=== PATIENT | male | born 1945 | race Caucasian/White ===

== ENCOUNTER → 2021-11-01 | Outpatient (CLI) | payer MEDICARE | LOC: PLD 14:20 | DX: D48.5 Neoplasm of uncertain behavior of skin (principal) ==

== ENCOUNTER → 2022-01-10 | Outpatient (CLI) | payer MEDICARE ==
[2022-01-10 19:10] LABS: Calcium, Blood 9.8 mg/dL (8.5-10.1); Potassium, Blood 5.2 mmol/L (3.5-5.5)
[2022-01-11 08:09] LABS: HIV AB/P24 AG SCREEN Non Reactive (Non Reactive)
== END | disposition home or self-care (01) ==
LOC: LAB SHORT 16:45 → LAB 16:45
PROVIDERS: Nurse Practitioner Family
DX: Z11.59 Encounter for screening for other viral diseases (principal); I10 Essential (primary) hypertension
CPT/HCPCS: 80048; 86803; 87389

== ENCOUNTER → 2023-01-10 | Outpatient (CLI) | payer MEDICARE ==
[2023-01-10 19:01] LABS: Bun/Creatinine Ratio 13.6 (12.0-20.0); Calcium, Blood 9.6 mg/dL (8.5-10.1); Creatinine, Blood 0.81 mg/dL (0.60-1.20); Potassium, Blood 4.1 mmol/L (3.5-5.5)
== END ==
LOC: LAB 15:58 → LAB SHORT 15:58
PROVIDERS: Nurse Practitioner Family
DX: I10 Essential (primary) hypertension (principal); R73.01 Impaired fasting glucose
CPT/HCPCS: 80048; 83036

== ENCOUNTER 2023-05-10 18:27 | Emergency (ER) | payer MEDICARE ==
[~2023-05-10] VITALS: Ht 175.3 cm; Wt 77.1 kg
[2023-05-10 18:53] VITALS: BP 133/77
== END 2023-05-10 21:28 | disposition home or self-care (01) ==
LOC: ER 18:27
DX: S01.81XA Laceration without foreign body of other part of head, initial encounter (principal); S61.411A Laceration without foreign body of right hand, initial encounter; W18.09XA Striking against other object with subsequent fall, initial encounter; Z95.0 Presence of cardiac pacemaker; Z79.01 Long term (current) use of anticoagulants
CPT/HCPCS: 12011; 99283-25

== ENCOUNTER 2024-05-10 17:11 | Emergency (ER) | payer MEDICARE ==
[~2024-05-10] VITALS: Ht 175.3 cm; Wt 70.3 kg
[2024-05-10] MEDS ORDERED: Morphine Sulfate 4 MG/1 ML Injection IV ONE (18:40)
[2024-05-10 19:30] VITALS: BP 148/65
== END 2024-05-10 19:30 | disposition home or self-care (01) ==
LOC: ER 17:11
DX: S01.21XA Laceration without foreign body of nose, initial encounter (principal); S61.213A Laceration without foreign body of left middle finger without damage to nail, initial encounter; S00.93XA Contusion of unspecified part of head, initial encounter; S80.212A Abrasion, left knee, initial encounter; Z95.0 Presence of cardiac pacemaker; Z79.01 Long term (current) use of anticoagulants; W18.30XA Fall on same level, unspecified, initial encounter
CPT/HCPCS: 12001; 12011; 70450; 96374-59; 99283-25; J2270

== ENCOUNTER → 2024-06-24 | Outpatient (CLI) | payer MEDICARE ==
[2024-06-24 16:29] LABS: BASOPHILS ABSOLUTE AUTO 0.01 K/mm3 (0.00-0.23); BASOPHILS PERCENT AUTO 0 % (0-2); EOSINOPHILS ABSOLUTE AUTO 0.02 K/mm3 (0.00-0.68); EOSINOPHILS PERCENT AUTO 0 % (0-6); Hematocrit 43.1 % (37.0-53.0); Hemoglobin 14.8 g/dL (13.5-17.5); IMMATURE GRAN ABSOLUTE AUTO 0.08 K/mm3 (0.00-0.10); IMMATURE GRAN PERCENT AUTO 1 % (0-1); LYMPHOCYTES ABSOLUTE AUTO 1.36 K/mm3 (0.84-5.20); LYMPHOCYTES PERCENT AUTO 11 % (21-46); MONOCYTES ABSOLUTE AUTO 0.94 K/mm3 (0.16-1.47); MONOCYTES PERCENT AUTO 7 % (4-13); Mean Corpuscular HGB 32.3 pg (26.0-34.0); Mean Corpuscular HGB Conc 34.3 g/dL (31.5-36.5); Mean Corpuscular Volume 94 fL (80-100); NEUTROPHILS ABSOLUTE AUTO 10.54 K/mm3 (1.96-9.15); NEUTROPHILS PERCENT AUTO 81 % (41-73); Platelet Count 160 K/mm3 (150-400); RDW Coefficient Variation 13.2 % (11.7-14.2); RDW Standard Deviation 45.6 fL (35.1-46.3); Red Blood Cell Count 4.58 M/mm3 (4.30-5.90); White Blood Cell Count 12.95 K/mm3 (4.00-11.30)
[2024-06-24 16:39] LABS: Bun/Creatinine Ratio 29.1 (12.0-20.0); Calcium, Blood 8.9 mg/dL (8.5-10.1); Creatinine, Blood 0.83 mg/dL (0.60-1.20); Potassium, Blood 4.6 mmol/L (3.5-5.5); Thyroid Stimulating Hormone 0.986 uIU/mL (0.360-4.800)
== END ==
LOC: LAB SHORT 11:57 → LAB 11:57
PROVIDERS: Nurse Practitioner Family
DX: I10 Essential (primary) hypertension (principal); R53.83 Other fatigue; D72.829 Elevated white blood cell count, unspecified; E87.6 Hypokalemia; R53.82 Chronic fatigue, unspecified; Z79.899 Other long term (current) drug therapy
CPT/HCPCS: 80048; 84443; 85025

== ENCOUNTER 2024-11-08 15:57 | Emergency (ER) | payer MEDICARE ==
[~2024-11-08] VITALS: Ht 172.7 cm; Wt 63.0 kg
[2024-11-08 16:03] VITALS: BP 124/61
== END 2024-11-08 17:20 | disposition home or self-care (01) ==
LOC: ER 15:57
DX: S41.111A Laceration without foreign body of right upper arm, initial encounter (principal); M54.89 Other dorsalgia; Z79.01 Long term (current) use of anticoagulants; W01.198A Fall on same level from slipping, tripping and stumbling with subsequent striking against other object, initial encounter
CPT/HCPCS: 72080; 99284-25; A9270

== ENCOUNTER 2024-12-15 10:09 | Day surgery (SDC) | payer MEDICARE ==
[~2024-12-15] VITALS: Ht 172.7 cm; Wt 61.0 kg
[2024-12-15] MEDS ORDERED: EPINEPhrine HCl 1 MG / ML 30ML Vial ONE (10:18)
[2024-12-15] MEDS ORDERED: FentaNYL Citrate 50 MCG/ML 2 ML Injection ONE (10:19)
[2024-12-15] MEDS ORDERED: Sugammadex Sodium 200 MG/2ML SDV (100 MG/ML) ONE (10:19)
[2024-12-15] MEDS ORDERED: Dexamethasone Sod Phos 10 MG/ML 1ML VIAL ONE (10:20)
[2024-12-15] MEDS ORDERED: Ondansetron HCl 2 MG / ML 2ML Vial ONE (10:20)
[2024-12-15] MEDS ORDERED: Rocuronium Bromide 10 MG/ML 5ML Injection IV ONE (10:20)
[2024-12-15] MEDS ORDERED: AMLODIPINE BESY10 MG PO (10:33)
[2024-12-15] MEDS ORDERED: LISI20 PO (10:33)
[2024-12-15] MEDS ORDERED: ATOR40TA PO (10:33)
[2024-12-15] MEDS ORDERED: ELIQUIS5 M3 PO (10:33)
[2024-12-15] MEDS ORDERED: ANORO ELLIPTA1 EAC1 IH (10:34)
[2024-12-15] MEDS ORDERED: ALBU90OI INH (10:34)
[2024-12-15] MEDS ORDERED: ALBU2.5V5 INH (10:38)
[2024-12-15] MEDS ORDERED: Phenylephrine HCl 100 MCG/ML-NS 10MLSYR (1MG/10ML) ONE (11:07)
[2024-12-15] MEDS ORDERED: Oxymetazoline 0.05% Nasal Relief Spray 15mL BTL ONE (11:22)
--- NOTE | 2024-12-15 11:45 | NUR ---
12/15/24 1145 FELI MICHELLE TRIAL OFF OXYGEN. PT RUNNING 100% ON 8L NON-REBREATHER.
[2024-12-15 12:01] VITALS: BP 119/69
--- NOTE | 2024-12-15 12:08 | NUR ---
12/15/24 1200 FELI MICHELLE PT IN AT BEDSIDE. PT PUTTING HEARING AIDS IN AT THIS TIME. DRINKING WO DIFF.
== END 2024-12-15 12:46 | disposition home or self-care (01) ==
LOC: ORSCSDS 10:09
PROVIDERS: Otolaryngology
PROC: 0CBR8ZX Excision of Epiglottis, Via Natural or Artificial Opening Endoscopic, Diagnostic (ICD-10-PCS; principal; 2024-12-15 11:30)
DX: J38.7 Other diseases of larynx (principal); I10 Essential (primary) hypertension; R49.0 Dysphonia; R13.10 Dysphagia, unspecified; R63.4 Abnormal weight loss; J44.9 Chronic obstructive pulmonary disease, unspecified; Z79.01 Long term (current) use of anticoagulants; Z79.899 Other long term (current) drug therapy; F17.290 Nicotine dependence, other tobacco product, uncomplicated; R33.9 Retention of urine, unspecified
CPT/HCPCS: 51702; 51798; 81001; 88305; 88312; 96374; 99283; A9270; J0165; J1100; J1885; J2371; J2405; J2704; J3010; J7120

== ENCOUNTER 2024-12-15 20:45 | Emergency (ER) | payer MEDICARE ==
[~2024-12-15] VITALS: Ht 172.7 cm; Wt 59.4 kg
[~2024-12-15 20:45] MED LIST: ALBU2.5V5 INH; ALBU90OI INH; AMLODIPINE BESY10 MG PO; ANORO ELLIPTA1 EAC1 IH; ATOR40TA PO; ELIQUIS5 M3 PO; LISI20 PO
[2024-12-15 21:44] VITALS: BP 107/72
[2024-12-15 23:33] LABS: Source, Urine Foley catheter
[2024-12-15 23:59] LABS: Bilirubin, Urine Neg (Neg); Glucose Qualitative, Urine Neg (Neg); Ketones, Urine 1+ (Neg); Leukocyte Esterase, Urine Neg (Neg); Protein, Urine 2+ (Neg); Specific Gravity, Urine 1.015 (1.003-1.022); Urobilinogen, Urine NORM (Normal)
[2024-12-16 00:06] LABS: Color, Urine Yellow (P-Yellow)
[2024-12-16 00:08] LABS: Red Blood Cells, Urine 0-2 /hpf (0-2); White Blood Cells, Urine 0-2 /hpf (0-5)
[2024-12-16] MEDS ORDERED: Ketorolac Tromethamine 15mg Vial IM ONE (00:50)
== END 2024-12-16 01:02 | disposition home or self-care (01) ==
LOC: ER 20:45
PROVIDERS: Physician Assistant
DX: R33.9 Retention of urine, unspecified (principal); Z79.899 Other long term (current) drug therapy
CPT/HCPCS: 51702; 51798; 81001; 96374; 99283; J1885

== ENCOUNTER 2024-12-24 04:02 | Observation (INO) | payer MEDICARE ==
[~2024-12-24] VITALS: Ht 172.7 cm; Wt 61.2 kg
[2024-12-24 04:24] LABS: Source, Urine Foley catheter
[2024-12-24 04:42] LABS: Bilirubin, Urine Neg (Neg); Glucose Qualitative, Urine Neg (Neg); Ketones, Urine 3+ (Neg); Leukocyte Esterase, Urine Neg (Neg); Protein, Urine 1+ (Neg); Specific Gravity, Urine 1.015 (1.003-1.022); Urobilinogen, Urine NORM (Normal)
[2024-12-24 05:02] LABS: Color, Urine Yellow (P-Yellow)
[2024-12-24] MEDS ORDERED: Ketorolac Tromethamine 30mg Vial IV ONE (06:20)
[2024-12-24 06:34] LABS: BASOPHILS ABSOLUTE AUTO 0.03 K/mm3 (0.00-0.23); BASOPHILS PERCENT AUTO 0 % (0-2); EOSINOPHILS ABSOLUTE AUTO 0.04 K/mm3 (0.00-0.68); EOSINOPHILS PERCENT AUTO 0 % (0-6); Hematocrit 34.6 % (37.0-53.0); Hemoglobin 12.1 g/dL (13.5-17.5); IMMATURE GRAN ABSOLUTE AUTO 0.05 K/mm3 (0.00-0.10); IMMATURE GRAN PERCENT AUTO 0 % (0-1); LYMPHOCYTES ABSOLUTE AUTO 0.94 K/mm3 (0.84-5.20); LYMPHOCYTES PERCENT AUTO 8 % (21-46); MONOCYTES ABSOLUTE AUTO 0.85 K/mm3 (0.16-1.47); MONOCYTES PERCENT AUTO 8 % (4-13); Mean Corpuscular HGB Conc 35.0 g/dL (31.5-36.5); Mean Corpuscular Volume 90 fL (80-100); NEUTROPHILS ABSOLUTE AUTO 9.25 K/mm3 (1.96-9.15); NEUTROPHILS PERCENT AUTO 83 % (41-73); NRBC ABSOLUTE 0.00 K/mm3 (0.00-0.02); NRBC Auto 0.0 /100 WBC (0.0-0.2); Platelet Count 217 K/mm3 (150-400); RDW Coefficient Variation 12.8 % (11.7-14.2); RDW Standard Deviation 42.2 fL (35.1-46.3)
[2024-12-24] MEDS ORDERED: Lactulose 200 GM/300 ML Enema 300ML BTL PR ONE (07:00)
[2024-12-24 07:04] LABS: Magnesium, Blood 1.9 mg/dL (1.6-2.4)
[2024-12-24 07:05] LABS: Alanine Aminotransfer (ALT/SGP 24.0 U/L (12-78); Albumin, Blood 2.8 g/dL (3.4-5.0); Albumin/Globulin Ratio 1.0 (0.8-1.8); Anion Gap 11.0 mmol/L (3-11); Aspartate Aminotrans (AST/SGOT 18.0 U/L (12-37); Bilirubin, Total 0.8 mg/dL (0.1-1.0); Blood Urea Nitrogen 11.0 mg/dL (8-24); CO2, Blood 22.0 mmol/L (21-32); Calcium, Blood 8.8 mg/dL (8.5-10.1); Chloride, Blood 102.0 mmol/L (98-108); Creatinine, Blood 0.45 mg/dL (0.60-1.20); Globulin, Blood 2.7 g/dL (2.2-4.0); Glucose, Blood 96.0 mg/dL (70-99); Potassium, Blood 3.5 mmol/L (3.5-5.5); Sodium, Blood 131.0 mmol/L (136-145); Total Protein, Blood 5.5 g/dL (6.4-8.2)
[2024-12-24] MEDS ORDERED: Magnesium Citrate 300 ML BTL PO ONE (09:50)
[2024-12-24] MEDS ORDERED: FLU VACC TS2025(65UP)/MF59C/PF 45 MCG/0.5 ML SYRINGE IM ONE (11:25)
[2024-12-24] MEDS ORDERED: MIRALAX17 GM PO (11:59)
[2024-12-24] MEDS ORDERED: Ipratropium/Albuterol SulF 2.5-0.5MG/3 ML Amp INH SCH (14:00)
[2024-12-24 15:26] VITALS: BP 137/76
[2024-12-24] MEDS ORDERED: Polyethylene Glycol 3350 17 gm PO PRN (15:30)
[2024-12-24] MEDS ORDERED: NICO21TP TOP (15:37)
--- NOTE | 2024-12-24 17:05 | NUR ---
SHIFT SUMMARY PATIENT RECEIVED FROM ER AT 1500. PATIENT A&OX4, SON AND PATIENT WAS ABLE TO PROVIDE HISTORY. HAS HAD 3 BM'S SINCE ADMIT. PATIENT ORIENTED TO FLOOR. PATIENT ASKED TO BE A DNR, CODE STATUS UPDATED. PATIENT IS ABLE TO MAKE NEEDS KNOWN, NO DISTRESS NOTED. CALL LIGHT WITHIN REACH.
--- NOTE | 2024-12-24 17:24 | NUR ---
THIS STAFFING ANALYST HAS REVIEWED AND AGREES WITH ALL NOTES AND ASSESSMENTS BY FELISA PETERS.
[2024-12-24 19:42] VITALS: BP 143/78
[2024-12-24] MEDS ORDERED: Miconazole Nitrate 2% 85 GM PWD TOP SCH (21:00)
[2024-12-25 03:50] VITALS: BP 127/73
--- NOTE | 2024-12-25 05:27 | NUR ---
PT RESTED COMFORTABLY ALL NIGHT. NO PRN MEDICATIONS WERE GIVEN. NO ACUTE CHANGES. BED IN LOW POSITION, CALL TAVARES WITHIN REACH, POSESSIONS WITHIN REACH.
[2024-12-25 06:35] LABS: BASOPHILS ABSOLUTE AUTO 0.03 K/mm3 (0.00-0.23); BASOPHILS PERCENT AUTO 0 % (0-2); EOSINOPHILS ABSOLUTE AUTO 0.08 K/mm3 (0.00-0.68); EOSINOPHILS PERCENT AUTO 1 % (0-6); Hematocrit 37.4 % (37.0-53.0); Hemoglobin 12.6 g/dL (13.5-17.5); IMMATURE GRAN ABSOLUTE AUTO 0.05 K/mm3 (0.00-0.10); IMMATURE GRAN PERCENT AUTO 1 % (0-1); LYMPHOCYTES ABSOLUTE AUTO 1.08 K/mm3 (0.84-5.20); LYMPHOCYTES PERCENT AUTO 12 % (21-46); MONOCYTES ABSOLUTE AUTO 0.76 K/mm3 (0.16-1.47); MONOCYTES PERCENT AUTO 8 % (4-13); Mean Corpuscular HGB Conc 33.7 g/dL (31.5-36.5); Mean Corpuscular Volume 94 fL (80-100); NEUTROPHILS ABSOLUTE AUTO 7.40 K/mm3 (1.96-9.15); NEUTROPHILS PERCENT AUTO 79 % (41-73); NRBC ABSOLUTE 0.00 K/mm3 (0.00-0.02); NRBC Auto 0.0 /100 WBC (0.0-0.2); Platelet Count 231 K/mm3 (150-400); RDW Coefficient Variation 13.1 % (11.7-14.2); RDW Standard Deviation 45.0 fL (35.1-46.3)
[2024-12-25 07:05] LABS: Alanine Aminotransfer (ALT/SGP 22.0 U/L (12-78); Albumin, Blood 2.8 g/dL (3.4-5.0); Albumin/Globulin Ratio 1.1 (0.8-1.8); Anion Gap 11.0 mmol/L (3-11); Aspartate Aminotrans (AST/SGOT 17.0 U/L (12-37); Bilirubin, Total 0.6 mg/dL (0.1-1.0); Blood Urea Nitrogen 6.0 mg/dL (8-24); CO2, Blood 21.0 mmol/L (21-32); Calcium, Blood 8.9 mg/dL (8.5-10.1); Chloride, Blood 108.0 mmol/L (98-108); Creatinine, Blood 0.51 mg/dL (0.60-1.20); Globulin, Blood 2.6 g/dL (2.2-4.0); Glucose, Blood 75.0 mg/dL (70-99); Potassium, Blood 3.3 mmol/L (3.5-5.5); Sodium, Blood 137.0 mmol/L (136-145); Total Protein, Blood 5.4 g/dL (6.4-8.2)
[2024-12-25] MEDS ORDERED: Albuterol 2.5 MG/3 ML VIAL INH PRN (07:30)
[2024-12-25 07:41] VITALS: BP 133/73
[2024-12-25] MEDS ORDERED: Ipratropium/Albuterol SulF 2.5-0.5MG/3 ML Amp INH SCH (07:55)
[2024-12-25] MEDS ORDERED: Enoxaparin 40 MG/0.4 ML SYR SC SCH (09:00)
--- NOTE | 2024-12-25 09:10 | NUR ---
ASSUMPTION OF CARE NOTE: ASSUMED CARE OF PATIENT, OVERSEEING CARE OF ORIENTING RNNELLI. PT AWAKE DURING SHIFT CHANGE REPORT, RECEIVING BREATHING TREATMENT. EXTREMELY HARD OF HEARING AND PLACED HEARING AIDS DURING REPORT. NO ACUTE NEEDS. ELDER PATENT AND DRAINING URINE TO GRAVITY. HAVING BOWEL MOVEMENTS. BREATHING EVEN AND UNLABORED c RA DURING DUONEB Tx. BED IN LOWEST POSITION. CALL LIGHT WITHIN REACH. ACUTE NEEDS MET.
--- NOTE | 2024-12-25 12:18 | NUR ---
PATIENT ANXIOUS TO SEE PHYSICAL THERAPIST. PATIENT STATED HE WANTS TO GO HOME, AT BEDSIDE ALSO WANTING TO KNOW WHAT MUST HAPPEN FOR PT TO BE DISCHARGED HOME. I EXPLAINED THE DOC WANTS TO HAVE PT EVALUATE PT ABILITY TO MOBILIZE HIMSELF. PATIENT THEN SAT ON EDGE OF BED AND STOOD AND THEN SAT BACK DOWN AND STATED "YOU JUST SAW ME STAND." I EXPLAINED TO THE PATIENT HE WILL NEED TO SHOW PT AND THEN CAN FEEL LIKE HE MADE THE RIGHT CHOICE WHEN HE WRITES THE DISCHARGE ORDER. PATIENT SMILED AND NODDED.
[2024-12-25] MEDS ORDERED: LACT10SY PO (14:12)
--- NOTE | 2024-12-25 16:44 | NUR ---
THIS RN REVIEWED DOCUMENTATION OF ORIENTING NURSE, FELISA AIKEN.
--- NOTE | 2024-12-25 17:38 | NUR ---
DISCHARGE 1549 PATIENT LEFT WITH ALL BELONGINGS, TAKEN HOME BY . ALL DISCHARGE INSTRUCTIONS AND MEDICATIONS WERE REVIEWED AND QUESTIONS ANSWERED. PATIENT AND STATED UNDERSTANDING OF DISCHARGE INSTRUCTIONS. PATIENT LEFT IN A STABLE CONDITION.
== END 2024-12-25 15:49 | disposition home health service (06) ==
LOC: ER 04:02 → MEDS 04:03
PROVIDERS: Emergency Medicine; Student in an Organized Health Care Education/Training Program; ADMIT Hospitalist
DX: K56.41 Fecal impaction (principal); R33.9 Retention of urine, unspecified; R53.1 Weakness; E86.0 Dehydration; I10 Essential (primary) hypertension; J43.9 Emphysema, unspecified; I48.0 Paroxysmal atrial fibrillation; J45.909 Unspecified asthma, uncomplicated; E78.5 Hyperlipidemia, unspecified; Z66 Do not resuscitate; Z79.01 Long term (current) use of anticoagulants; Z79.899 Other long term (current) drug therapy; Z95.0 Presence of cardiac pacemaker
CPT/HCPCS: 36415; 51702; 51798; 74177; 80053; 83735; 85025; 94640; 94664; 94760; 94762; 96361; 96374; 97110; 97116; 97162; 99285-25; A9270; G0378; J1885; J7120; Q9967

== ENCOUNTER 2025-01-21 13:36 | Emergency (ER) | payer MEDICARE ==
[~2025-01-21] VITALS: Ht 172.7 cm; Wt 59.0 kg
[~2025-01-21 13:36] MED LIST changes: +LACT10SY PO; +MIRALAX17 GM PO; +NICO21TP TOP
[2025-01-21] MEDS ORDERED: Human Prothrombin Complx(Pcc) 2,000 UNIT in Water For Injection,Sterile 80 ML IV ONE (14:15)
[2025-01-21 14:23] LABS: BASOPHILS ABSOLUTE AUTO 0.03 K/mm3 (0.00-0.23); BASOPHILS PERCENT AUTO 0 % (0-2); EOSINOPHILS ABSOLUTE AUTO 0.01 K/mm3 (0.00-0.68); EOSINOPHILS PERCENT AUTO 0 % (0-6); Hematocrit 38.1 % (37.0-53.0); Hemoglobin 12.8 g/dL (13.5-17.5); IMMATURE GRAN ABSOLUTE AUTO 0.10 K/mm3 (0.00-0.10); IMMATURE GRAN PERCENT AUTO 1 % (0-1); LYMPHOCYTES ABSOLUTE AUTO 0.59 K/mm3 (0.84-5.20); LYMPHOCYTES PERCENT AUTO 4 % (21-46); MONOCYTES ABSOLUTE AUTO 0.69 K/mm3 (0.16-1.47); MONOCYTES PERCENT AUTO 5 % (4-13); Mean Corpuscular HGB Conc 33.6 g/dL (31.5-36.5); Mean Corpuscular Volume 93 fL (80-100); NEUTROPHILS ABSOLUTE AUTO 13.61 K/mm3 (1.96-9.15); NEUTROPHILS PERCENT AUTO 91 % (41-73); NRBC ABSOLUTE 0.00 K/mm3 (0.00-0.02); NRBC Auto 0.0 /100 WBC (0.0-0.2); Platelet Count 196 K/mm3 (150-400); RDW Coefficient Variation 13.6 % (11.7-14.2); RDW Standard Deviation 46.5 fL (35.1-46.3)
[2025-01-21 14:37] LABS: Prothrombin Time Results 12.2 Sec (9.7-11.5)
[2025-01-21 14:50] LABS: Alanine Aminotransfer (ALT/SGP 31.0 U/L (12-78); Albumin, Blood 3.4 g/dL (3.4-5.0); Albumin/Globulin Ratio 1.4 (0.8-1.8); Anion Gap 5.0 mmol/L (3-11); Aspartate Aminotrans (AST/SGOT 29.0 U/L (12-37); Bilirubin, Total 0.6 mg/dL (0.1-1.0); Blood Urea Nitrogen 7.0 mg/dL (8-24); CO2, Blood 27.0 mmol/L (21-32); Calcium, Blood 9.2 mg/dL (8.5-10.1); Chloride, Blood 107.0 mmol/L (98-108); Creatinine, Blood 0.53 mg/dL (0.60-1.20); Globulin, Blood 2.4 g/dL (2.2-4.0); Glucose, Blood 135.0 mg/dL (70-99); Potassium, Blood 3.8 mmol/L (3.5-5.5); Sodium, Blood 135.0 mmol/L (136-145); Total Protein, Blood 5.8 g/dL (6.4-8.2)
[2025-01-21 15:45] VITALS: BP 138/72
== END 2025-01-21 16:04 | disposition home or self-care (01) ==
LOC: ER 13:36
PROVIDERS: Emergency Medicine
DX: S06.6XAA Traumatic subarachnoid hemorrhage with loss of consciousness status unknown, initial encounter (principal); S06.5XAA Traumatic subdural hemorrhage with loss of consciousness status unknown, initial encounter; S02.31XA Fracture of orbital floor, right side, initial encounter for closed fracture; S02.40CA Maxillary fracture, right side, initial encounter for closed fracture; S02.841A Fracture of lateral orbital wall, right side, initial encounter for closed fracture; S02.40EA Zygomatic fracture, right side, initial encounter for closed fracture; I10 Essential (primary) hypertension; J45.909 Unspecified asthma, uncomplicated; W18.30XA Fall on same level, unspecified, initial encounter; Z79.01 Long term (current) use of anticoagulants; Z79.899 Other long term (current) drug therapy
CPT/HCPCS: 70450; 72125; 80053; 85025; 85610; 93005; 93010; 96374; 96375; 99285-25; J1953; J7168